=== PATIENT | male | born 2000 | race Caucasian/White ===

== ENCOUNTER 2023-04-13 09:32 | Emergency (ER) | payer MEDICAID ==
[~2023-04-13] VITALS: Ht 185.4 cm; Wt 79.4 kg
[2023-04-13 09:47] VITALS: BP 125/83
[2023-04-13] MEDS ORDERED: Veetids 500500 MG PO (10:01)
== END 2023-04-13 10:11 | disposition home or self-care (01) ==
LOC: ER 09:32
DX: J02.0 Streptococcal pharyngitis (principal); F17.200 Nicotine dependence, unspecified, uncomplicated; Z79.899 Other long term (current) drug therapy
CPT/HCPCS: 99282